=== PATIENT | female | born 1950 | race Caucasian/White ===

== ENCOUNTER 2020-09-22 07:08 | Outpatient (CLI) | payer MEDICARE ==
[2020-09-22 13:52] LABS: Bilirubin Neg (Negative); Blood, Urine 10 (Negative); Clarity Clear (Clear); Glucose, Urine (Dipstick) Normal (Negative); Ketone, Urine Negative (Negative); Leukocyte Negative (Negative); Nitrite Negative (Negative); Protein, Urine (Dipstick) Negative (Neg-Trace); Urobilinogen Normal mg/dL (Less than 2)
[2020-09-22 13:54] LABS: #Eosinphils 0.3 10x3/uL (0.0-0.5); #Monocytes 0.3 10x3/uL (0.0-1.1); #Neutrophils 2.9 10x3/uL (1.5-8.4); %Basophils 0.5 % (0.0-2.0); %Eosinophils 5.5 % (0.0-6.0); %Lymphocytes 35.5 % (18.0-47.0); %Monocytes 6.1 % (0.0-10.0); %Neutrophils 52.2 % (40.0-75.0); Hemoglobin 12.8 g/dL (12.0-16.0); Mean Corpuscular HGB CONC 32.9 G/DL (32.0-36.0); Mean Corpuscular Hemoglobin 29.6 PG (27.0-33.0); Mean Platelet Volume 9.9 fl (7.4-10.4); Platelet Count 305 10x3/uL (130-400); RBC Distribution Width 13.1 % (11.5-14.5); Red Blood Cell (RBC) Count 4.32 10x6/uL (3.90-5.20); White Blood Cell (WBC) Count 5.6 10x3/uL (4.5-11.0)
[2020-09-22 14:06] LABS: Bacteria/HPF Rare-Few HPF (None Seen); RBC/HPF 0-3 HPF (0-3); Squamous Epithelial 0-3 HPF (0-3); WBC/HPF 0-3 HPF (0-3)
[2020-09-22 14:09] LABS: Prothrombin Time 10.6 sec (9.5-12.1)
[2020-09-22 14:18] LABS: Anion Gap 15 mmol/L (10-20); BUN (Urea Nitrogen) 20 mg/dL (9.8-20.1); Calc. Creatinine Clearance 0 mL/min (70-130); Calcium 9.2 mg/dL (7.8-10.44); Carbon Dioxide 28 mmol/L (23-31); Chloride 102 mmol/L (98-107); Estimated GFR-MDRD 65; Glucose 128 mg/dL (80-115); Potassium 3.7 mmol/L (3.5-5.1); Sodium 141 mmol/L (136-145)
[2020-09-23 00:38] LABS: SARS-CoV-2 MS2 Positive; SARS-CoV-2 N Gene Negative; SARS-CoV-2 S Gene Negative; SARS-CoV-2 by NAA Not Detected (NotDetected); SARS-CoV-2 orf1ab Negative
== END 2020-09-22 07:09 | disposition home or self-care (01) ==
LOC: LABBT 07:08
PROVIDERS: ATTEND Orthopaedic Surgery
DX: Z01.818 Encounter for other preprocedural examination (principal); M17.0 Bilateral primary osteoarthritis of knee; Z20.828 Contact with and (suspected) exposure to other viral communicable diseases
CPT/HCPCS: 80048; 81001; 85025; 85610; 87081; 87086; 93005; U0003; 87635; 93010

== ENCOUNTER 2020-09-27 06:57 | Inpatient (IN) | payer MEDICARE ==
--- NOTE | 2020-09-23 09:00 | HP ---
HISTORY OF PRESENT ILLNESS: The patient is a 70-year-old female with a long history of progressive bilateral knee pain, left greater than right without injury. She has had progressive pain at rest, restriction of activities, anti-inflammatory medications, and several cortisone injections. She has had also previous left knee arthroscopy in the past. 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 PAST MEDICAL HISTORY: The patient is otherwise in good health. She has a history of hypertension, thyroid disorder, seasonal allergies, and previous hepatitis. CURRENT MEDICATIONS: Include; 1. Benicar. 2. Naltrexone. 3. Multivitamins. ALLERGIES: CODEINE AND SULFA. FAMILY HISTORY: Otherwise unremarkable. SOCIAL HISTORY: Otherwise unremarkable. REVIEW OF SYSTEMS: Otherwise unremarkable. PHYSICAL EXAMINATION: GENERAL: Reveals a healthy female. HEENT: Unremarkable. NECK: Supple. CHEST: Clear. HEART: Regular rate and rhythm. ABDOMEN: Soft, nontender. PELVIC: Deferred. RECTAL: Deferred. BREASTS: Deferred. EXTREMITIES: Pertinent findings of either knee; there is mild varus deformity bilaterally. There is tenderness and crepitus over the medial joint line, left greater than right. Range of motion is 0 to 125 degrees bilaterally. On the left, there are healed arthroscopy puncture sites. There is no instability of either knee. Gait is slow and normal. Neurovascular exam is intact. There are palpable distal pulses. No pain with range of motion of either hip. IMAGING STUDIES: X-rays of both knees reveal [id number] collapse medially bilaterally. IMPRESSION: 1. Degenerative arthritis of both knees, left symptomatic more than right. 2. History of hypertension. PLAN: Left total knee replacement. She will probably eventually require a staged right total knee replacement. The nature of the surgery, length of recovery, and potential complications such as infection, loss of motion, incomplete relief, delayed wound healing, neurovascular injury, thromboembolic phenomena, possible transfusion, need for revision have been discussed in detail. Job ID: [id number]
[2020-09-27] MEDS ORDERED: Sodium Chloride 0.9% 100 ML ONE (07:19)
[2020-09-27] MEDS ORDERED: Tranexamic Acid 1,000 MG/10 ML VIAL ONE ×2 (07:19→11:50)
[2020-09-27] MEDS ORDERED: Vancomycin 1 GM/200 ML BAG ONE (07:19)
[2020-09-27] MEDS ORDERED: Midazolam HCl 2 mg/2 ml Vial ONE (08:55)
[2020-09-27] MEDS ORDERED: Fentanyl 100 MCG/2 ML VIAL ONE ×3 (08:55→12:07)
[2020-09-27] MEDS ORDERED: Fentanyl 100 MCG/2 ML VIAL IV PRN (09:19)
[2020-09-27] MEDS ORDERED: Ondansetron PF 4 MG/2 ML Vial IVP PRN ×2 (09:30→13:22)
[2020-09-27] MEDS ORDERED: traMADol HCl 50 MG TAB PO PRN ×3 (09:30→13:22)
[2020-09-27] MEDS ORDERED: Ropivacaine HCl/PF 250 ML in Premix Bag 1 BAG NERVE BLCK SCH (09:30)
[2020-09-27] MEDS ORDERED: HYDROcodone/Acetaminophen 10/325 mg Tablet PO PRN ×3 (09:30→13:22)
[2020-09-27] MEDS ORDERED: Zolpidem Tartrate 5 MG TAB PO PRN ×2 (09:30→13:22)
[2020-09-27] MEDS ORDERED: Promethazine HCl 25 MG/ML VIAL IM PRN ×2 (09:30→11:57)
[2020-09-27] MEDS ORDERED: Bupivacaine 0.25% HCL 30 ML VIAL ONE ×2 (09:46)
[2020-09-27] MEDS ORDERED: EPINEPHrine 1 MG/ML AMP ONE (09:46)
[2020-09-27] MEDS ORDERED: Bupivacaine HCl 0.5%/Epinephrine 1:200,000/PF 30 ml Vial ONE (10:48)
[2020-09-27] MEDS ORDERED: Ondansetron PF 4 MG/2 ML Vial ONE ×2 (10:48→12:35)
[2020-09-27] MEDS ORDERED: PROPOFOL 200 MG/20 ML VIAL ONE (10:48)
[2020-09-27] MEDS ORDERED: PHENYLEPHRINE-NS 100 MCG/ML 10 ML SYRINGE ONE (10:48)
[2020-09-27] MEDS ORDERED: Ropivacaine 0.2% HCl/PF (40 MG/20 ML VIAL) ONE (10:48)
[2020-09-27] MEDS ORDERED: Ketorolac Tromethamine 30 MG/ML VIAL ONE (10:48)
[2020-09-27] MEDS ORDERED: Lidocaine 1% PF 5 ML VIAL ONE (10:48)
[2020-09-27] MEDS ORDERED: Ondansetron HCl/PF 4 MG/2 ML Vial IVP PRN (11:57)
[2020-09-27] MEDS ORDERED: Promethazine HCl 25 MG/ML VIAL SLOW IVP PRN ×2 (11:57→13:22)
[2020-09-27] MEDS ORDERED: Ketorolac Tromethamine 30 MG/ML VIAL IVP SCH (12:00)
[2020-09-27] MEDS ORDERED: Tranexamic Acid 1,000 MG in Sodium Chloride 0.9% 100 ML IVPB SCH ×2 (12:00→13:22)
--- NOTE | 2020-09-27 12:22 | RAD ---
RADIOGRAPH LEFT KNEE 2 VIEWS: DATE: 09/27/2020 HISTORY: 70-year-old female with chronic left knee pain status post surgery FINDINGS: Resurfacing changes of articular surfaces of distal femur, patella, and tibial plateau. Metallic pros theses cover the resurfaced articular surfaces of distal femur and tibial plateau. Subcutaneous emphysema in the anterior soft tissues of the thigh and knee indicate recent status of surgery. IMPRESSION: Very recently status post total left knee replacement arthroplasty.
--- NOTE | 2020-09-27 12:58 | OP ---
DATE OF PROCEDURE: 09/27/2020 This is Alexandru Martinez PA-C dictating a report for Kimo Lazaro MD. PREOPERATIVE DIAGNOSIS: End-stage tricompartmental osteoarthritis, left knee. POSTOPERATIVE DIAGNOSIS: End-stage tricompartmental osteoarthritis, left knee. PROCEDURE PERFORMED: Cemented cruciate-sparing computer-assisted navigated left total knee arthroplasty. TAX ASSISTANT: Alexandru Martinez PA-C. The certified ophthalmic surgical assistant/co-surgeon was present throughout the entirety of the case, provided the skin retraction, bleeding control, tissue manipulation, and all maneuvers necessary to reduction and implementation and application of hardware. The certified ophthalmic surgical assistant/co-surgeon also provided primary closure in conjunction with the primary surgeon. ANESTHESIA: General via LMA augmented with indwelling adductor canal block and a single-shot sciatic block. COMPONENTS USED: From [facility] size 4 cemented cruciate-sparing femoral component with a size 3 primary cemented tibial base plate, 9 mm polyethylene fixed bearing insert, and an S27 patella button. TOURNIQUET TIME: 65 minutes. ESTIMATED BLOOD LOSS: Less than 100. FINDINGS: End-stage severe degenerative tricompartmental disease, [id number] arthrosis, periarticular osteophyte formation, large serous effusion, hypertrophic synovium, and changes consistent with chronic degenerative genu varum. INPUT: 800 crystalloid. OUTPUT: 200 mL clear yellow urine. DRAINS: None. SPECIMENS: None. COMPLICATIONS: None. COUNTS: Correct. INDICATION FOR SURGERY: Isela is a 70-year-old white female, who has had left knee pain and problem with standing and walking for the last 5 to 7 years. She has failed conservative management and elected to proceed with total knee arthroplasty as definitive treatment of her pain. PROCEDURE IN DETAIL: After informed consent was obtained in the preoperative holding area, the patient was taken to the operative suite where general anesthesia was induced. Once adequate level of anesthesia was obtained, the patient was then positioned appropriately and a well-padded tourniquet was placed over the operative thigh. The operative extremity was then prepped and draped in the usual sterile fashion. Prior to exsanguination, a multidisciplinary time-out was called and all members of the surgical team attended. The extremity was then exsanguinated and tourniquet was raised where it remained for the remainder of the case to include closure. A midline longitudinal incision was then made directly over the patella, extending 2 to 3 fingerbreadths above the superior pole of the patella and 2 to 3 fingerbreadths below the inferior patellar pole down to the tibial tubercle. Deeper subcutaneous layers were dissected sharply and local bleeding was controlled with Bovie electrocautery. The certified ophthalmic surgical assistant then performed a longitudinal quad tendon split sharply with a median parapatellar arthrotomy, carried out down to the tibial tubercle. Medial sheath was then opened along the medial joint line inferiorly with Bovie and blunt dissection. Subtotal infrapatellar fat pad-ectomy was performed as was an anterior horn of the lateral meniscus. The knee was then placed in flexion and the computer-assisted distal femoral fiducial was pinned in place. After mapping the distal femur, the distal femoral cutting guide was then placed and pinned by the certified ophthalmic surgical assistant. The oscillating saw was then used by the certified ophthalmic surgical assistant to remove the appropriate amount of distal bone. After this was performed, the distal femoral sizing guide was placed, pinned, and the 4-in-1 cutting block was then placed for appropriate rotation. Again, the oscillating saw was used to remove the appropriate amount of bone cuts anteriorly, posteriorly, and chamfer cuts. After completion of the distal femoral cuts, the posterior cruciate ligament was then identified, retracted, and recessed by the certified ophthalmic surgical assistant using Bovie electrocautery. Once posteriorly subluxing the distal femur over the tibia, the proximal tibial fiducial for navigation was then pinned into place by the certified ophthalmic surgical assistant. The proximal tibia was mapped and the cutting guide was pinned into place and adjusted for the appropriate resection. The certified ophthalmic surgical assistant then pinned this into place and the oscillating saw was used to make a proximal tibia resection after carefully placing Hohmann retractors to protect the collateral ligaments. The osteotome was used to remove the proximal tibial resection. This was cleaned up with Bovie electrocautery. Attention was then turned to placing trials. The tibial tray was placed first. The drop shikha was used to set rotation. This was pinned by the certified ophthalmic surgical assistant into place. We chose the appropriate size polyethylene for good fit and finish and mid flexion stability. The distal femoral component was then placed, the knee was placed into extension and tested with varus valgus stressing as well as anterior-posterior drawer. They all seemed quite snug and tight with full range of motion observed. Patellar resection was then addressed. The certified ophthalmic surgical assistant used 2 towel clips to domi the patella and hold in place while the primary surgeon used the oscillating saw to resect the underside of the patella. We sized it appropriately and the drill holes were placed for lugs and the patellar button was placed for trial. This was taken through range of motion with flexion and extension. There was no squinting or release noted and the patella tracked true in the intercondylar notch and anterior flange. The femoral component and patella trial as well as a trial polyethylene were removed. The tibia was subluxed, allowing for the keel punch instrumentation. We then punched the appropriate keel depth and size for the implant. All trials were then removed and all prepared bone surfaces were then copiously irrigated with pulsatile lavage and prepared for cementation. The knee was again placed in flexion. After blotting dry, the tibial baseplate was then cemented and malleted into place. All excess cement was removed by the certified ophthalmic surgical assistant with a curettage and [place] elevator. We then placed polyethylene and it was malleted squarely into place and the femoral component was then placed and all excess cement was removed. The knee was then placed in extension. Patella button was addressed and cemented into place. Excess cement was removed by the certified ophthalmic surgical assistant. We then placed the knee back into flexion and checked for excess cement after an extension maneuver and this was all removed as well. The entire knee and arthrotomy were copiously irrigated with pulsatile lavage. Primary closure was accomplished with #2 Vicryl and reapproximating the median parapatellar arthrotomy and longitudinal split. This was oversewn with #2 Quill in concert with primary surgeon and co-surgeon at the same time. The subcutaneous layer was reapproximated with a running 0 Quill stitch and subcuticular layer was closed with a running Monocryl 2-0 Quill stitch. Skin cement was used to reapproximate the skin. This was allowed to cure. A sterile dressing was applied. Tourniquet was dropped and a sterile dressing was applied and the procedure terminated without any complication. The patient was awakened in the operative suite, airway was removed, and they were taken to recovery room in stable condition. The certified ophthalmic surgical assistant surgeon helped throughout the procedure by positioning the patient, stabilizing the limb, holding retractors, aligning the prosthesis, and closure of procedure site. Job ID: [id number]
[2020-09-27] MEDS ORDERED: Fentanyl 100 MCG/2 ML VIAL SLOW IVP PRN ×2 (13:22)
[2020-09-27] MEDS ORDERED: Acetaminophen 325 MG TAB PO PRN (13:22)
[2020-09-27] MEDS ORDERED: diphenhydrAMINE 25 MG CAP PO PRN (13:22)
[2020-09-27] MEDS: Sodium Chloride 0.9% 1,000 ML IV SCH ×2 (14:37→22:57)
[2020-09-27] MEDS: CEFAZOLIN 2 GM in Premix Bag 1 BAG IVPB SCH ×2 (14:37→22:52)
[2020-09-27] MEDS: Ketorolac Tromethamine 30 MG/ML VIAL IVP SCH ×2 (18:13→22:52)
[2020-09-27] MEDS ORDERED: Vancomycin 1 GM in Premix Bag 1 BAG IVPB SCH (19:00)
[2020-09-27] MEDS: Aspirin 81 mg Enteric Coated Tablet PO SCH (20:47)
[2020-09-27] MEDS: Senokot S 8.6-50 MG TAB PO SCH (20:47)
[2020-09-28] MEDS: Ketorolac Tromethamine 30 MG/ML VIAL IVP SCH ×4 (05:10→23:15)
[2020-09-28 06:12] LABS: Hemoglobin 10.6 g/dL (12.0-16.0); Mean Corpuscular HGB CONC 33.1 g/dL (32.0-36.0); Mean Corpuscular Hemoglobin 31.1 pg (27.0-31.0); Mean Corpuscular Volume 94.1 fL (78.0-98.0); Mean Platelet Volume 7.5 fL (7.4-10.4); Platelet Count 205 thou/uL (130-400); RBC Distribution Width 11.8 % (11.5-14.5); Red Blood Cell (RBC) Count 3.41 mill/uL (4.20-5.40); White Blood Cell (WBC) Count 7.3 thou/uL (4.8-10.8)
[2020-09-28] MEDS: Thyroid 60 MG TAB PO SCH (06:12)
[2020-09-28 07:56] VITALS: BMI 29.2
[2020-09-28] MEDS: Multivitamin W/ Minerals 1 TAB PO SCH (08:25)
[2020-09-28] MEDS: Senokot S 8.6-50 MG TAB PO SCH ×2 (08:25→20:08)
[2020-09-28] MEDS: Ubidecarenone 50 MG CAP PO SCH (08:25)
[2020-09-28] MEDS: HYDROcodone/Acetaminophen 10/325 mg Tablet PO PRN ×3 (08:26→20:07)
[2020-09-28] MEDS: Cholecalciferol 1,000 UNITS (25 MCG) TAB PO SCH (08:26)
[2020-09-28] MEDS: Aspirin 81 mg Enteric Coated Tablet PO SCH ×2 (08:27→20:07)
[2020-09-28] MEDS: Sodium Chloride 0.9% 1,000 ML IV SCH ×3 (08:33→23:16)
[2020-09-28] MEDS: Losartan/Hydrochlorothiazide 100 mg/25 mg Tablet PO SCH (09:00)
[2020-09-28] MEDS ORDERED: Hydrochlorothiazide 25 MG TAB PO SCH (09:00)
[2020-09-28] MEDS ORDERED: Calcium Carbonate 500 MG ChewTAB ONE (22:08)
[2020-09-29] MEDS: HYDROcodone/Acetaminophen 10/325 mg Tablet PO PRN ×3 (03:53→14:59)
[2020-09-29] MEDS: Ketorolac Tromethamine 30 MG/ML VIAL IVP SCH ×2 (05:07→15:23)
[2020-09-29] MEDS: Thyroid 60 MG TAB PO SCH (06:42)
[2020-09-29] MEDS: Losartan/Hydrochlorothiazide 100 mg/25 mg Tablet PO SCH (08:59)
[2020-09-29] MEDS: Ubidecarenone 50 MG CAP PO SCH (09:02)
[2020-09-29] MEDS: Cholecalciferol 1,000 UNITS (25 MCG) TAB PO SCH (09:02)
[2020-09-29] MEDS: Multivitamin W/ Minerals 1 TAB PO SCH (09:02)
[2020-09-29] MEDS: Aspirin 81 mg Enteric Coated Tablet PO SCH (09:02)
[2020-09-29] MEDS: Sodium Chloride 0.9% 1,000 ML IV SCH (12:31)
[2020-09-29] MEDS: Senokot S 8.6-50 MG TAB PO SCH (15:23)
[2020-09-29 16:34] VITALS: BP 132/76; TEMP 97.8
== END 2020-09-29 15:55 | disposition home or self-care (01) | DRG 470 ==
LOC: SDC 06:57 → SJJU 07:11
PROVIDERS: ADMIT Orthopaedic Surgery; ATTEND Orthopaedic Surgery
PROC: 0SRD0J9 Replacement of Left Knee Joint with Synthetic Substitute, Cemented, Open Approach (ICD-10-PCS; principal; 2020-09-27)
DX: M17.0 Bilateral primary osteoarthritis of knee (principal); I10 Essential (primary) hypertension; Z88.2 Allergy status to sulfonamides; Z88.5 Allergy status to narcotic agent
CPT/HCPCS: 36415; 85027; C1713; C1776; J0171; J0690; J1885; J2250; J2405; J2704; J2795; J3010; J3370; J3490; S0020